=== PATIENT | male | born 1955 | race African-American/Black ===

== ENCOUNTER 2023-09-10 11:08 | Emergency (ER) | payer MEDICARE, MEDICAID ==
[~2023-09-10] VITALS: Ht 180.3 cm; Wt 67.1 kg
[2023-09-10 11:13] VITALS: O2SAT 98
[2023-09-10] MEDS ORDERED: METOPROLOL SUCCINATE 50MG ER TABLET PO STA (11:22)
[2023-09-10] MEDS: METOPROLOL SUCCINATE 25MG ER TABLET PO SCH (11:47)
[2023-09-10 14:01] VITALS: BP 197/126; PULSE 68; RESP 23; TEMP 97.9
== END 2023-09-10 14:20 | disposition left against medical advice (07) ==
LOC: ER 11:08
DX: I10 Essential (primary) hypertension (principal); F41.9 Anxiety disorder, unspecified; F32.9 Major depressive disorder, single episode, unspecified; F20.9 Schizophrenia, unspecified; Z87.440 Personal history of urinary (tract) infections
CPT/HCPCS: 71045; 93005; 99283